=== PATIENT | female | born 1965 | race Caucasian/White ===

== ENCOUNTER 2022-11-04 02:04 | Emergency (ER) | payer OTHER ==
[2022-11-04 03:18] LABS: ESTIMATED GFR 44 mL/min (>60)
[2022-11-04 03:35] LABS: CORONAVIRUS COVID-19 NAA NEGATIVE (NEGATIVE)
== END 2022-11-04 06:28 ==
LOC: JD.ED 02:04
DX: R94.31 Abnormal electrocardiogram [ECG] [EKG] (principal); Z88.0 Allergy status to penicillin; Z88.2 Allergy status to sulfonamides; Z20.822 Contact with and (suspected) exposure to COVID-19
CPT/HCPCS: 0241U; 36415; 71046; 80053; 81001; 83735; 84484; 85007; 85027; 85379; 86140; 87040; 87086; 93005; 99285; 93010